=== PATIENT | female | born 1985 | race Two or more races ===

== ENCOUNTER 2021-06-02 06:23 | Day surgery (SDC) | payer OTHER ==
[~2021-06-02 06:23] MED LIST: CENTRUM TABLET1 TAB PO; DICLOFENAC SODI75 MG PO; ORPH100T PO
== END 2021-06-02 15:00 | disposition home or self-care (01) ==
LOC: CIR.AMB 06:23
PROVIDERS: ATTEND Obstetrics & Gynecology
DX: N72 Inflammatory disease of cervix uteri (principal)